=== PATIENT | male | born 1975 | race Caucasian/White ===

== ENCOUNTER 2017-12-21 06:46 | Emergency (ER) | payer OTHER ==
[2017-12-21] MEDS ORDERED: Ondansetron 4 MG/2 ML SDV IVPUSH ONE (07:06)
[2017-12-21] MEDS ORDERED: Ketorolac 30 MG/ML SDV IVPUSH ONE (07:06)
[2017-12-21] MEDS ORDERED: Sodium Chloride 0.9% 1,000 ML IV ONE (07:06)
[2017-12-21] MEDS ORDERED: Pantoprazole 40 MG Vial IVPUSH ONE (07:07)
--- NOTE | 2017-12-21 07:08 | EDM.PDOC ---
ED HPI GENERAL MEDICAL PROBLEM - General Chief Complaint: Abdominal Pain Stated Complaint: RIGHT SIDE PAIN Time Seen by Provider: 12/21/17 07:07 Source of Information: Reports: Patient - History of Present Illness INITIAL COMMENTS - FREE TEXT/NARRATIVE: HISTORY AND PHYSICAL: History of present illness: [Patient awoke at 4 AM this morning with right upper quadrant pain, is a heavy drinker seems that he may drink up to a case of Budweiser daily. On awakening he described pain as 8 out of 10 now pain has calmed down to a 2 out of 10 is nonradiating For dinner last night he did have shrimp and primary, otherwise fairly uneventfully is generally healthy no chronic illness or disease no similar symptoms previously] No fever nausea vomiting chills sweats no chest pain shortness breath headache dizziness or palpitation no bowel or urine symptoms Review of systems: As per history of present illness and below otherwise all systems reviewed and negative. Past medical history: As per history of present illness and as reviewed below otherwise noncontributory. Surgical history: As per history of present illness and as reviewed below otherwise noncontributory. Social history: No reported history of drug or alcohol abuse. Family history: As per history of present illness and as reviewed below otherwise noncontributory. Physical exam: HEENT: Atraumatic, normocephalic, pupils reactive, negative for conjunctival pallor or scleral icterus, mucous membranes moist, throat clear, neck supple, nontender, trachea midline. Lungs: Clear to auscultation, breath sounds equal bilaterally, chest nontender. Heart: S1S2, regular, negative for clicks, rubs, or JVD. Abdomen: Soft, nondistended, nontender. Negative for masses or hepatosplenomegaly. Negative for costovertebral tenderness. Pelvis: Stable nontender. Genitourinary: Deferred. Rectal: Deferred. Extremities: Atraumatic, negative for cords or calf pain. Neurovascular unremarkable. Neuro: Awake, alert, oriented. Cranial nerves II through XII unremarkable. Cerebellum unremarkable. Motor and sensory unremarkable throughout. Exam nonfocal. Diagnostics: [CBC CMP UA lipase troponin Right upper quadrant limited CT abdomen without ] Therapeutics: [1 L normal saline bolus Zofran 8 mg IV Toradol 30 mg IV Proton X 80 mg IV ]Flomax Solu-Medrol [place] Flomax Zofran Filter urine collection equipment Impression: 4 mm ureteral stone [ abdominal pain ] Definitive disposition and diagnosis as appropriate pending reevaluation and review of above. RUQ Pain Score (Numeric/FACES): 7 - Related Data Allergies Allergy/AdvReac Type Severity Reaction Status Date / Time No Known Allergies Allergy Verified 12/21/17 07:01 Home Meds: Home Meds . [No Known Home Meds] 12/21/17 [History] Past Medical History HEENT History: Reports: None Cardiovascular History: Reports: None Respiratory History: Reports: None Gastrointestinal History: Reports: None Genitourinary History: Reports: None Musculoskeletal History: Reports: None Neurological History: Reports: None Psychiatric History: Reports: None Endocrine/Metabolic History: Reports: None Hematologic History: Reports: None Immunologic History: Reports: None Oncologic (Cancer) History: Reports: None Dermatologic History: Reports: None - Past Surgical History Head Surgeries/Procedures: Reports: None HEENT Surgical History: Reports: Eye Surgery, Tonsillectomy Cardiovascular Surgical History: Reports: None Respiratory Surgical History: Reports: None GI Surgical History: Reports: None Male Surgical History: Reports: None Endocrine Surgical History: Reports: None Neurological Surgical History: Reports: None Musculoskeletal Surgical History: Reports: None Oncologic Surgical History: Reports: None Dermatological Surgical History: Reports: None Social & Family History - Family History Family Medical History: Noncontributory - Tobacco Use Smoking Status *Q: Current Every Day Smoker Years of Tobacco use: 17 Packs/Tins Daily: 1 - Caffeine Use Caffeine Use: Reports: Coffee - Alcohol Use Days Per Week of Alcohol Use: 7 Number of Drinks Per Day: 12 Total Drinks Per Week: 84 - Recreational Drug Use Recreational Drug Use: No ED ROS GENERAL - Review of Systems Review Of Systems: See Below ED EXAM, GENERAL - Physical Exam Exam: See Below Course - Vital Signs Last Recorded V/S: Last Vital Signs Temp 97.4 F 12/21/17 07:01 Pulse 56 L 12/21/17 07:01 Resp 18 12/21/17 07:01 BP 155/86 H 12/21/17 07:01 Pulse Ox 98 12/21/17 07:01 - Orders/Labs/Meds Orders: Active Orders 24 hr Category Date Time Status Abdomen Ltd [US] Stat Exams 12/21/17 07:43 Taken Abdomen Pelvis wo Cont [CT] Stat Exams 12/21/17 10:02 Taken Labs: Laboratory Tests 12/21/17 12/21/17 12/21/17 Range/Units 07:13 07:13 08:35 WBC 12.84 H (4.0-11.0) K/uL RBC 4.62 (4.50-5.90) M/uL Hgb 15.8 (13.0-17.0) g/dL Hct 43.5 (38.0-50.0) % MCV 94.2 (80.0-98.0) fL MCH 34.2 H (27.0-32.0) pg MCHC 36.3 (31.0-37.0) g/dL RDW Std Deviation 44.7 (28.0-62.0) fl RDW Coeff of Shazia 13 (11.0-15.0) % Plt Count 190 (150-400) K/uL MPV 9.30 (7.40-12.00) fL Neut % (Auto) 82.8 H (48.0-80.0) % Lymph % (Auto) 10.8 L (16.0-40.0) % [place] % (Auto) 5.1 (0.0-15.0) % Eos % (Auto) 1.1 (0.0-7.0) % Baso % (Auto) 0.2 (0.0-1.5) % Neut # (Auto) 10.6 H (1.4-5.7) K/uL Lymph # (Auto) 1.4 (0.6-2.4) K/uL [place] # (Auto) 0.7 (0.0-0.8) K/uL Eos # (Auto) 0.1 (0.0-0.7) K/uL Baso # (Auto) 0.0 (0.0-0.1) K/uL Nucleated RBC % 0.0 /100WBC Nucleated RBCs # 0 K/uL Sodium 135 L (136-148) mmol/L Potassium 3.8 (3.5-5.1) mmol/L Chloride 103 (98-107) mmol/L Carbon Dioxide 19.2 L (21.0-32.0) mmol/L BUN 14 (7.0-18.0) mg/dL Creatinine 0.8 (0.8-1.3) mg/dL Est Cr Clr Drug Dosing 134.72 mL/min Estimated GFR (MDRD) > 60.0 ml/min Glucose 119 H (74-106) mg/dL Calcium 9.2 (8.5-10.1) mg/dL Total Bilirubin 0.7 (0.2-1.0) mg/dL AST 25 (15-37) IU/L ALT 44 (14-63) IU/L Alkaline Phosphatase 100 (46-116) U/L Troponin I < 0.050 (0.000-0.056) ng/mL Total Protein 7.5 (6.4-8.2) g/dL Albumin 4.1 (3.4-5.0) g/dL Globulin 3.4 (2.0-3.5) g/dL Albumin/Globulin Ratio 1.2 L (1.3-2.8) Lipase 207 (73-393) U/L Urine Color DARK YELLOW Urine Appearance SLT CLOUDY Urine pH 5.0 (5.0-8.0) Ur Specific [place] >= 1.030 (1.001-1.035) Urine Protein TRACE (NEGATIVE) mg/dL Urine Glucose (UA) NEGATIVE (NEGATIVE) mg/dL Urine Ketones NEGATIVE (NEGATIVE) mg/dL Urine Occult Blood LARGE H (NEGATIVE) Urine Nitrite NEGATIVE (NEGATIVE) Urine Bilirubin NEGATIVE (NEGATIVE) Urine Urobilinogen 0.2 (<2.0) EU/dL Ur Leukocyte Esterase TRACE (NEGATIVE) Urine RBC 75-100 (0-2/HPF) Urine WBC 2-4 (0-5/HPF) Ur Epithelial Cells FEW (NONE-FEW) Amorphous Sediment MODERATE (NEGATIVE) Urine Bacteria FEW (NEGATIVE) Urine Mucus MODERATE (NONE-MOD) Meds: Medications Discontinued Medications Generic Name Dose Route Start Last Admin Trade Name Freq PRN Reason Stop Dose Admin Sodium Chloride 1,000 mls @ 999 mls/hr 12/21/17 07:06 12/21/17 07:27 Normal Saline IV 12/21/17 08:06 999 mls/hr STAT ONE Administration Ketorolac Tromethamine 30 mg 12/21/17 07:06 12/21/17 07:27 Toradol IVPUSH 12/21/17 07:07 30 mg ONETIME ONE Administration Methylprednisolone Sodium Succinate 125 mg 12/21/17 11:05 Solu-Medrol IVPUSH 12/21/17 11:06 ONETIME ONE Ondansetron HCl 8 mg 12/21/17 07:06 12/21/17 07:28 Zofran IVPUSH 12/21/17 07:07 8 mg ONETIME ONE Administration Pantoprazole Sodium 80 mg 12/21/17 07:07 12/21/17 07:28 Protonix Iv IVPUSH 12/21/17 07:08 80 mg .BOLUS ONE Administration Tamsulosin HCl 0.4 mg 12/21/17 11:05 Flomax PO 12/21/17 11:06 ONETIME ONE Departure - Departure Time of Disposition: 11:08 Disposition: Home, Self-Care 01 Condition: Good Clinical Impression: Ureteral stone - Discharge Information Referrals: PCP,None [Primary Care Provider] - Forms: ED Department Discharge Additional Instructions: Medication as prescribed Return if symptoms persist or worsen Filtering collection equipment provided Return stone to primary care or urology for further testing [facility] - Primary Care [address] [place] [address] [facility] - Urology [address] [place] [address] The following information is given to patients seen in the emergency department who are being discharged to home. This information is to outline your options for follow-up care. We provide all patients seen in our emergency department with a follow-up referral. The need for follow-up, as well as the timing and circumstances, are variable depending upon the specifics of your emergency department visit. If you don't have a primary care physician on staff, we will provide you with a referral. We always advise you to contact your personal physician following an emergency department visit to inform them of the circumstance of the visit and for follow-up with them and/or the need for any referrals to a consulting specialist. The emergency department will also refer you to a specialist when appropriate. This referral assures that you have the opportunity for follow-up care with a specialist. All of these measure are taken in an effort to provide you with optimal care, which includes your follow-up. Under all circumstances we always encourage you to contact your private physician who remains a resource for coordinating your care. When calling for follow-up care, please make the office aware that this follow-up is from your recent emergency room visit. If for any reason you are refused follow-up, please contact the [facility] emergency department at and asked to speak to the emergency department charge nurse. - My Orders Last 24 Hours: My Active Orders 12/21/17 07:43 Abdomen Ltd [US] Stat 12/21/17 10:02 Abdomen Pelvis wo Cont [CT] Stat - Assessment/Plan Last 24 Hours: My Active Orders 12/21/17 07:43 Abdomen Ltd [US] Stat 12/21/17 10:02 Abdomen Pelvis wo Cont [CT] Stat
[2017-12-21 07:41] LABS: CHLORIDE,CL 103 mmol/L (98-107); SODIUM,NA 135 mmol/L (136-148)
[2017-12-21] MEDS ORDERED: Tamsulosin 0.4 MG Cap.ER PO ONE (11:05)
[2017-12-21] MEDS ORDERED: methylPREDNISolone Sodium Succinate 125 MG/2 ML SDV IVPUSH ONE (11:05)
--- NOTE | 2017-12-22 18:14 | US ---
EXAM DATE: 12/21/17 PATIENT'S AGE: 42 Patient: UYEN DOTY Facility: [place], [place] Site . Site : 1975 Study: US Abdomen [id number]/30/2018 9:40:34 AM Ordering Physician: Silvano Rea Final Report: HISTORY: Right upper quadrant pain. COMPARISON: None. FINDINGS: The liver demonstrates normal echogenicity. The pancreas is not well seen due to obscuring bowel gas. No gallstones, gallbladder wall thickening or pericholecystic fluid. No intra or extrahepatic biliary dilation. The common duct is measured at 2 mm. The right kidney measures 11.2 x 5.3 x 5.5 cm. No hydronephrosis. IVC patent. Impression : No acute abnormality. Dictated by Sujatha Nair MD @ Dec 21 2017 9:56AM (Electronic Signature) Report Signed by Proxy. DON
--- NOTE | 2017-12-22 18:17 | CT ---
EXAM DATE: 12/21/17 PATIENT'S AGE: 42 Patient: UYEN DOTY Facility: [place], [place] Site . Site : 1975 Study: CT Abdomen/Pelvis WO CONT [id number]/30/[id number] 10:21:22 AM Ordering Physician: Silvano Rea Final Report: INDICATION: Right upper abdominal pain. COMPARISON: Ultrasound examination of the right upper quadrant of the abdomen same date. TECHNIQUE: CT abdomen and pelvis without intravenous or oral contrast; coronal and sagittal reformats. FINDINGS: No abnormal intra pulmonary nodular densities through the lung bases. Patchy area of alveolar consolidation lower lobe left lung. No evidence of pleural effusion. Normal size cardiac silhouette without any evidence of pericardial effusion. No focal hepatic or splenic pathology. No pancreatic pathology. Gallbladder is unremarkable. No adrenal pathology. 4 mm stone identified at the right ureteropelvic junction causing mild right-sided hydronephrosis. No kidneys stones on either side. No stones identified in the left ureter. No retroperitoneal lymphadenopathy. Normal appendix. CT study of the pelvis is unremarkable. IMPRESSION: 1. 4 mm stone at the right ureteropelvic junction causing mild right-sided hydronephrosis. 2. Normal appendix. 3. Patchy alveolar consolidation lower lobe left lung. Please note that all CT scans at this facility use dose modulation, iterative reconstruction, and/or weight-based dosing when appropriate to reduce radiation dose to as low as reasonably achievable. Dictated by Mi Castanon MD @ Dec 21 2017 10:43AM (Electronic Signature) Report Signed by Proxy. DON
== END 2017-12-21 11:30 | disposition home or self-care (01) ==
LOC: MW.ED 06:46
DX: N13.2 Hydronephrosis with renal and ureteral calculous obstruction (principal); F17.210 Nicotine dependence, cigarettes, uncomplicated
CPT/HCPCS: 36415; 74176; 76705; 80053; 81001; 83690; 84484; 85025; 96361; 96374; 96375; 99284; A9270; C9113; J1885; J2405; J2930; J7040; 99283

== ENCOUNTER 2024-03-02 13:56 | Emergency (ER) | payer OTHER | END 2024-03-02 14:46 | disposition home or self-care (01) | LOC: MW.ED 13:56 | DX: Z02.89 Encounter for other administrative examinations (principal); F17.210 Nicotine dependence, cigarettes, uncomplicated; V43.62XA Car passenger injured in collision with other type car in traffic accident, initial encounter | CPT/HCPCS: 99283 ==